=== PATIENT | male | born 1985 | race Caucasian/White ===

== ENCOUNTER 2017-04-02 11:12 | Emergency (ER) | payer MEDICAID ==
[~2017-04-02] VITALS: Ht 177.8 cm; Wt 72.0 kg
[2017-04-02 11:19] VITALS: Ht 177.8 cm; Wt 72.0 kg
[2017-04-02] MEDS ORDERED: TRIMETHOPRIM/SULFAMETHOX (DS) TAB PO ONE (12:00)
[2017-04-02] MEDS ORDERED: CEPHALEXIN 500 MG CAP PO ONE (12:00)
[2017-04-02] MEDS ORDERED: HYDROCODONE/APAP (5/325) TAB PO ONE (12:00)
[2017-04-02] MEDS ORDERED: DIPHTH/TET/ACEL PERTUSS (ADULT) 0.5 ML VIAL IM* ONE (12:30)
--- NOTE | 2017-04-02 13:03 | ERD ---
ER Documentation Chief Complaint Date/Time DATE: 04/02/17 TIME: 12:58 Chief Complaint 7/10 left 3rd finger pain x 1 hour cut with saw HPI This is a 31-year-old male who presents emergency department today for complaints of cutting off his finger while using a saw will try to cut some PVC piping for his RV. Denies any previous trauma, fevers or chills. He has not taken any medication for the pain. States his friends are bringing his finger here to the emergency department. ROS All systems reviewed and are negative except as per history of present illness. Medications Home Meds Active Scripts Ibuprofen* (Motrin*) 600 Mg Tab, 600 MG PO Q6, #30 TAB Prov:DOROTEO VAUGHAN PA-C 04/02/17 Hydrocodone/Acetaminophen ([place] 5-325 Tablet) 1 Each Tablet, 1 TAB PO Q6H Y for PAIN, #12 TAB Prov:DOROTEO VAUGHAN PA-C 04/02/17 Cephalexin* (Keflex*) 500 Mg Capsule, 500 MG PO QID for 7 Days, CAP Prov:DOROTEO VAUGHAN PA-C 04/02/17 Sulfamethoxazole/Trimethoprim* (Bactrim Ds* Tablet) 1 Each Tablet, 1 TAB PO BID for 7 Days, #14 TAB Prov:DOROTEO VAUGHAN PA-C 04/02/17 Allergies Allergies: Coded Allergies: No Known Allergy (Unverified , 04/02/17) PMhx/Soc Medical and Surgical Hx: pt denies Medical Hx, pt denies Surgical Hx Hx Alcohol Use: Yes Hx Substance Use: No Hx Tobacco Use: No Smoking Status: Never smoker Physical Exam Vitals Vital Signs Date Time Temp Pulse Resp B/P Pulse Ox O2 Delivery O2 Flow Rate FiO2 04/02/17 11:19 98.2 51 20 127/80 99 Physical Exam Const: Pleasant, no acute distress Head: Atraumatic Eyes: Normal Conjunctiva ENT: Normal External Ears, Nose and Mouth. Neck: Full range of motion..~ No meningismus. Resp: Clear to auscultation bilaterally Cardio: Regular rate and rhythm, no murmurs Skin: No petechiae or rashes MSK: Left hand with evidence of finger and skin avulsion left third finger at DIP. Bleeding well controlled. Pulses 2+. Full active range of motion. Neur: Awake and alert Psych: Normal Mood and Affect Results 24 hrs Current Medications Medications (Trade) Dose Ordered Sig/Sanna Route PRN Reason Start Time Stop Time Status Last Admin Dose Admin Acetaminophen/ Hydrocodone Bitart ([place] (5/325)) 1 tab ONCE ONCE PO 04/02/17 12:00 04/02/17 12:01 DC 04/02/17 11:54 Trimethoprim/ Sulfamethoxazole (Bactrim (Ds)) 1 tab ONCE ONCE PO 04/02/17 12:00 04/02/17 12:01 DC 04/02/17 11:54 Cephalexin (Keflex) 500 mg ONCE ONCE PO 04/02/17 12:00 04/02/17 12:01 DC 04/02/17 11:54 Diphtheria/ Tetanus/Acell Pertussis (Adacel) 0.5 ml ONCE ONCE IM* 04/02/17 12:30 04/02/17 12:31 DC 04/02/17 12:25 DIAGNOSTIC IMAGING REPORT Patient: CASEY PADILLA : 1985 Age: 31 Sex: M MR #: [id number] DOS: 04/02/17 0000 Ordering MD: DOROTEO VAUGHAN PA-C Location: [facility] Room/Bed: PROCEDURE: XR Finger. CLINICAL INDICATION: Amputation injury TECHNIQUE: Three views of the left third finger are available for review. COMPARISON: None available FINDINGS: There is amputation of the tuft of the left third distal phalanx. There is overlying soft tissue irregularity of the dressing, obscures evaluation. No radiopaque foreign body is identified. IMPRESSION: Amputation of the tuft of the left third distal phalanx. RPTAT: HH .Marta Blum MD, Date Time Electronically viewed and signed by .Marta Blum MD, on 04/02/2017 13 :03 .G/ CC: DOROTEO VAUGHAN PA-C Procedures/MDM This a right-handed 31-year-old male who presents the emergency department today for laceration and cutting off his finger while using a saw to cut some PVC pipe approximately 1 hour prior to arrival. Patient's friends did show up later with the tip of the finger however given patient's injury there there does not appear to be a way to reattach the finger that would be viable at this time. I did obtain images. Per the radiology report images of the finger show an amputation of the tuft of the left third distal phalanx. Symptoms at this time is consistent with traumatic amputation and finger fracture at the distal tip with skin avulsion. Patient wound was cleaned here in the emergency department. He was given [place] for pain as well as a first dose of Bactrim and Keflex. He was also updated with a tetanus vaccine as he was not up-to-date. Wound was dressed with Surgicel and placed in a splint. He was instructed to follow-up with hand clinic at [facility] [place] today Patient will begin a prescription for [place], Motrin, Bactrim and Keflex. Discussed the patient with Dr. Cabrera and he did not feel that he required IV antibiotics at this time At this time the patient is stable for discharge and outpatient management. Patient should follow up with their PCP in the next 1-2 days. They may return to the emergency department sooner for any persistent or worsening of symptoms. Patient understood and agreed with the plan. Departure Diagnosis: Primary Impression: Finger amputation, traumatic Encounter type: initial encounter Qualified Code: S68.119A - Finger amputation, traumatic, initial encounter Additional Impression: Finger fracture, left Encounter type: initial encounter Fracture type: open Qualified Code: S62.609B - Finger fracture, left, open, initial encounter Condition: DOROTEO Anderson PA-C Apr 02, 2017 13:02
--- NOTE | 2017-04-02 13:03 | RADRPT ---
PROCEDURE: XR Finger. CLINICAL INDICATION: Amputation injury TECHNIQUE: Three views of the left third finger are available for review. COMPARISON: None available FINDINGS: There is amputation of the tuft of the left third distal phalanx. There is overlying soft tissue ir regularity of the dressing, obscures evaluation. No radiopaque foreign body is identified. IMPRESSION: Amputation of the tuft of the left third distal phalanx. RPTAT: HH .Marta Blum MD, MD Date Time Electronically viewed and signed by .Marta Blum MD, MD on 04/02/2017 13:03 .G/
[2017-04-02] MEDS ORDERED: SULF1TAB31 PO (13:10)
[2017-04-02] MEDS ORDERED: IBUP-1542 PO (13:11)
[2017-04-02] MEDS ORDERED: CEPH-443 PO (13:11)
[2017-04-02] MEDS ORDERED: HYDR-906 PO (13:11)
[2017-04-02 13:24] VITALS: BP 115/68; PULSE 68; RESP 18; TEMP 98.7
== END 2017-04-02 13:55 | disposition home or self-care (01) ==
LOC: FTE 11:12
DX: S68.113A Complete traumatic metacarpophalangeal amputation of left middle finger, initial encounter (principal); W27.0XXA Contact with workbench tool, initial encounter; Y92.9 Unspecified place or not applicable; Z23 Encounter for immunization
CPT/HCPCS: 29130; 73140; 90715; Z7610; 90471